=== PATIENT | male | born 1995 | race Caucasian/White ===

== ENCOUNTER 2019-10-23 09:40 | Outpatient (CLI) | payer OTHER ==
--- NOTE | 2019-10-23 10:21 | RAD ---
EXAM: Chest PA and lateral: HISTORY: Psoriasis vulgaris COMPARISON: None FINDINGS: Heart: Normal cardiac silhouette Aorta: Unremarkable Pulmonary vessels: Normal Costophrenic angles: Costophrenic angles are clear. Lungs: Scattered interstitial opacities throughout the lung parenchyma. Possible focal right lower lo be infiltrate. Pneumothorax: No pneumothorax Osseous structures: No osseous abnormalities IMPRESSION: Scattered interstitial opacities involving the lung parenchyma with possible focal right lower lobe i nfiltrate. Clinical correlation for atypical pneumonia is recommended.
== END 2019-10-23 09:41 | disposition home or self-care (01) ==
LOC: BICRAD 09:40 → EDBD 09:40 → BICRAD 09:41
PROVIDERS: ATTEND Dermatology
DX: L40.0 Psoriasis vulgaris (principal); R91.8 Other nonspecific abnormal finding of lung field
CPT/HCPCS: 71046

== ENCOUNTER 2020-02-13 21:43 | Emergency (ER) | payer OTHER ==
[2020-02-13 22:50] LABS: Bacteria/HPF None Seen HPF (None Seen); Bilirubin Negative (Negative); Blood, Urine 1+ (Negative); Clarity Clear (Clear); Glucose, Urine (Dipstick) Normal (Negative); Ketone, Urine Negative (Negative); Leukocyte Negative Leu/uL (Negative); Nitrite Negative (Negative); Protein, Urine (Dipstick) Negative (Neg-Trace); Specific Gravity, Urine 1.024 (1.002-1.036); Squamous Epithelial None Seen HPF (0-3); Urobilinogen Normal mg/dL (Less than 2)
[2020-02-13] MEDS ORDERED: Ketorolac Tromethamine 30 MG/ML VIAL ONE (22:50)
[2020-02-13] MEDS ORDERED: Ondansetron PF 4 MG/2 ML Vial ONE (22:53)
[2020-02-13 23:01] LABS: #Basophils 0.1 thou/uL (0.0-0.2); #Eosinphils 0.4 thou/uL (0.0-0.7); #Lymphocytes 2.3 thou/uL (1.20-3.40); #Monocytes 0.6 thou/uL (0.11-0.59); %Basophils 1.1 % (0.0-1.0); %Eosinophils 4.6 % (0.0-10.0); %Lymphocytes 27.7 % (21.0-51.0); %Monocytes 7.5 % (0.0-10.0); %Neutrophils 59.1 % (42.0-75.0); Hemoglobin 13.5 g/dL (14.0-18.0); Mean Corpuscular HGB CONC 33.6 g/dL (32.0-36.0); Mean Corpuscular Hemoglobin 30.8 pg (27.0-31.0); Mean Corpuscular Volume 91.5 fL (78.0-98.0); Mean Platelet Volume 8.4 fL (7.4-10.4); Platelet Count 257 thou/uL (130-400); RBC Distribution Width 11.4 % (11.5-14.5); White Blood Cell (WBC) Count 8.4 thou/uL (4.8-10.8)
[2020-02-13 23:20] LABS: ALT (SGPT) 14 U/L (8-55); AST (SGOT) 14 U/L (5-34); Albumin 4.1 g/dL (3.5-5.0); Alkaline Phosphatase 58 U/L (40-110); Anion Gap 13 mmol/L (10-20); BUN (Urea Nitrogen) 12 mg/dL (8.9-20.6); Bilirubin, Total 0.3 mg/dL (0.2-1.2); Calc. Creatinine Clearance 0 mL/min (70-130); Calcium 9.1 mg/dL (7.8-10.44); Carbon Dioxide 26 mmol/L (22-29); Chloride 108 mmol/L (98-107); Estimated GFR-MDRD 83; Globulin 2.6 g/dL (2.4-3.5); Glucose 92 mg/dL (70-105); Potassium 3.8 mmol/L (3.5-5.1); Protein, Total 6.7 g/dL (6.0-8.3); Sodium 143 mmol/L (136-145)
--- NOTE | 2020-02-13 23:26 | CT ---
CT abdomen and pelvis: 02/13/2020 COMPARISON: None HISTORY: Left flank pain TECHNIQUE: Axial CT imaging at 5 mm intervals from lung bases through pubic symphysis without contras t coronal and sagittal reformatted imaging obtained. FINDINGS: The lack of contrast limits assessment of the viscera, bowel, vascular structures, and for lymphadenopathy. The visualized lung bases are unremarkable. No free intraperitoneal air or fluid is seen. The liver and spleen appear grossly unremarkable. The gallbladder appears decompressed and poorly ass essed on this exam. Pancreas and adrenal glands appear unremarkable. Multiple punctate nonobstructing intrarenal calculi are noted bilaterally, right more numerous and la rger than on the left. Mild hydroureter is present on the left. There is a calcification in the region of the posterior aspe ct of the urinary bladder near the expected region of the ureterovesicular junction on the left. This calcification is seen on axial image 73 and measures approximately 3 mm. This could represent a distal left ureteral stone or a stone which has extended into the urinary bladder. Limited assessment of the bowel demonstrates no acute findings. Intrarenal calculi on the right measure up to approximately 4 mm and on the left measure in the 1-2 m m range. Osseous structures of the abdomen/pelvis demonstrate no acute findings. IMPRESSION: 3 mm calcification in the region of the left ureterovesicular junction as detailed above. Mild left hydroureter suggest mild left obstructive uropathy. Bilateral renal calculi are noted.
--- NOTE | 2020-02-14 00:01 | ULT ---
Ultrasound of thescrotum: 02/13/2020 COMPARISON:None available HISTORY:Left testicular pain TECHNIQUE: Multiplanar grayscale sonographic imaging of thescrotal contents obtained. Doppler interro gation of the testicles including color flow and spectral analysis. FINDINGS:Left testicle measures 4.8 x 2.3 x 3.0 cm and right testicle measures 4.9 x 2.7 x 3.2 cm. There is a small left hydrocele. No intratesticular mass. The testicles demonstrate normal blood flow bilaterally. The right epididymal head measures approximately 1.1 cm and the left epididymal head measures approxi mately 1.2 cm. IMPRESSION: Small left hydrocele-otherwise unremarkable.
== END 2020-02-14 00:19 | disposition home or self-care (01) ==
LOC: ERS 21:43
DX: N20.0 Calculus of kidney (principal); N13.4 Hydroureter; N43.3 Hydrocele, unspecified
CPT/HCPCS: 36415; 74176; 76870; 80053; 81003; 81015; 85025; 93976; 96374; 96375; J1885; J2405

== ENCOUNTER 2020-03-28 22:43 | Emergency (ER) | payer OTHER | END 2020-03-29 00:26 | disposition home or self-care (01) | LOC: ERS 22:43 | DX: Z00.00 Encounter for general adult medical examination without abnormal findings (principal); Z87.891 Personal history of nicotine dependence | CPT/HCPCS: 99281 ==